=== PATIENT | female | born 1990 | race Caucasian/White ===

== ENCOUNTER 2018-02-15 18:19 | Emergency (ER) | payer BC, OTHER ==
[2018-02-15 18:42] VITALS: TEMP 98.8; BMI 26.9
--- NOTE | 2018-02-15 19:58 | PDOC ---
History of Present Illness - General Chief Complaint: Vaginal Bleeding Stated Complaint: 7 WEEKS Vaginal Bleeding Time Seen by Provider: 02/15/18 19:42 History Source: Patient Exam Limitations: No Limitations Past History - Past Medical History Allergies/Adverse Reactions: Allergies Allergy/AdvReac Type Severity Reaction Status Date / Time No Known Allergies Allergy Verified 02/15/18 19:51 COPD: No - Immunization History Immunization Up to Date: Yes - Suicide/Smoking/Psychosocial Hx Smoking History: Never smoked Information on smoking cessation initiated: No Hx Alcohol Use: No Drug/Substance Use Hx: No *Physical Exam - Vital Signs Last Vital Signs Temp Pulse Resp BP Pulse Ox 98.8 F 131 H 20 127/69 99 02/15/18 18:38 02/15/18 18:38 02/15/18 18:38 02/15/18 18:38 02/15/18 18:38 - Physical Exam General Appearance: No: Apparent Distress Respiratory/Chest: positive: Lungs Clear, Normal Breath Sounds. negative: Respiratory Distress Cardiovascular: positive: Regular Rhythm, Regular Rate, S1, S2. negative: Murmur Female Pelvic Exam: positive: cervical os closed, vaginal bleeding (small amount of blood in vaginal vault). negative: CMT, adnexal tenderness Gastrointestinal/Abdominal: positive: Normal Bowel Sounds, Soft. negative: Tender, Distended, Guarding, Rebound Moderate Sedation - Procedure Monitoring Vital Signs: Procedure Monitoring Vital Signs Temperature 98.8 F 02/15/18 18:38 Pulse Rate 131 H 02/15/18 18:38 Respiratory Rate 20 02/15/18 18:38 Blood Pressure 127/69 02/15/18 18:38 O2 Sat by Pulse Oximetry (%) 99 02/15/18 18:38 ED Treatment Course - LABORATORY CBC & Chemistry Diagram: 02/15/18 19:54 02/15/18 19:54 - RADIOLOGY Radiology Studies Ordered: Category Date Time Status TRANSVAGINAL US PREG [US] Stat Ultrasound 02/15/18 19:42 Ordered Medical Decision Making - Medical Decision Making 27 y/o F (hx of 1 miscarriage) presents with vaginal bleeding from today along with passing clots. Denies trauma, fever, sob, cp, n/v, urinary complaints. LNMP was 12/30/17. Last checkup with [facility] was last week where everything was noted to be fine. Possible threatened , also consider ectopic Plan: Labs, pelvic ultrasound Of note, repeat HR while in ED was 88 (patient states she was crying in triage) 02/15/18 19:56 Ultrasound shows evidence of IUP but low heart tone - possible concern for future miscarriage Bhcg levels correspond with patients Patient is Rh positive Patient advised to f/u with [facility] in 2 days for repeat ultrasound and blood work; will refer to Dr. Collins in case she is unable to get early appt with her [facility] Pelvic rest encouraged 02/15/18 22:51 *DC/Admit/Observation/Transfer Diagnosis at time of Disposition: Threatened - Discharge Dispostion Disposition: HOME Condition at time of disposition: Good Decision to Admit order: No - Referrals Referrals: Rogelio Collins MD [Staff Physician] - Call tomorrow - Patient Instructions Printed Discharge Instructions: DI for Threatened Additional Instructions: Thank you for choosing [facility]. It was a pleasure taking care of you. You came here for vaginal bleeding You are at risk of miscarriage Recommend pelvic rest. Avoid heavy lifting/work/intercourse Please follow-up with your [facility] in 2 days to get repeat ultrasound and blood tests. Return to the Emergency Department if your symptoms worsen or persist, you have fever, shortness of breath, chest pain, severe abdominal pain, vomiting, heavy vaginal bleeding or other concerning symptoms. - Post Discharge Activity Forms/Work/School Notes: Back to Work
[2018-02-15 20:30] LABS: BASO % 0.2 % (0-2.0); EOS % 0.2 % (0-4.5); HEMATOCRIT 32.6 % (32.4-45.2); HEMOGLOBIN 11.7 GM/dL (10.7-15.3); LYMPH % 17.1 % (8-40); MCH 30.9 pg (25.7-33.7); MCHC 35.7 g/dl (32.0-36.0); MEAN CELL VOLUME 86.6 fl (80-96); MEAN PLT VOLUME 9.7 fl (7.5-11.1); NEUT % 76.5 % (42.8-82.8); PLATELET COUNT 206 K/MM3 (134-434); RBC 3.77 M/mm3 (3.60-5.2); RDW 12.9 % (11.6-15.6)
[2018-02-15 21:13] LABS: ANION GAP 7 MMOL/L (8-16); BLOOD UREA NITROGEN 15 mg/dL (7-18); CALCIUM 8.8 mg/dL (8.5-10.1); CHLORIDE 105 mmol/L (98-107); CO2 25 mmol/L (21-32); CREATININE 0.6 mg/dL (0.55-1.3); GLUCOSE,RANDOM 104 mg/dL (74-106); POTASSIUM 3.9 mmol/L (3.5-5.1); SODIUM 137 mmol/L (136-145)
[2018-02-15 23:06] VITALS: BP 106/76; PULSE 86
== END 2018-02-15 23:06 | disposition home or self-care (01) ==
LOC: JER 18:19
DX: O26.891 Other specified pregnancy related conditions, first trimester (principal); O20.0 Threatened abortion; Z3A.01 Less than 8 weeks gestation of pregnancy
CPT/HCPCS: 36415; 76817-TC; 80048; 84702; 85025; 86850; 86900; 86901; 99282-25

== ENCOUNTER 2018-02-28 09:03 | Day surgery (SDC) | payer BC, OTHER ==
[2018-02-27 10:31] VITALS: BMI 26.6
[2018-02-28] MEDS ORDERED: MIDAZOLAM HCL 2 MG/2 ML SINGLE DOSE VIAL ONE (10:59)
[2018-02-28] MEDS ORDERED: DEXAMETHASONE SOD PHOSPHATE 4 MG/1 ML VIAL ONE (11:00)
[2018-02-28] MEDS ORDERED: LIDOCAINE HCL/PF 2% SDV 5ML VIAL ONE (11:00)
[2018-02-28] MEDS ORDERED: IBUPROFEN 800 MG/8 ML IJ IVPB PRN (11:03)
[2018-02-28] MEDS ORDERED: ACETAMINOPHEN 325 MG TABLET (FP) PO PRN (11:03)
--- NOTE | 2018-02-28 11:03 | HP ---
History & Physical Update - History History: No Change - Physical Physical: No Change - Assessment Assessment: No Change - Plan Plan: No Change (missed - for suction D&C)
[2018-02-28] MEDS ORDERED: LACTATED RINGERS SOLUTION 1,000 ML IV SCH (11:15)
[2018-02-28] MEDS ORDERED: KETOROLAC TROMETHAMINE 30 MG/1 ML VIAL ONE (11:32)
--- NOTE | 2018-02-28 11:41 | OP ---
Operative Note - Note: Operative Date: 02/28/18 Pre-Operative Diagnosis: missed Post-Operative Diagnosis: Same as Pre-op Surgeon: Sara Hawthorne Anesthesia: General (with LMA) Specimens Removed: products of conception Estimated Blood Loss (mls): 5 Operative Report Dictated: Yes
[2018-02-28] MEDS ORDERED: ONDANSETRON 4 MG/2 ML VIAL IVPUSH PRN (12:45)
[2018-02-28] MEDS ORDERED: oxyCODONE HCL 5 MG TABLET PO PRN (12:45)
[2018-02-28 13:37] VITALS: TEMP 97.5
[2018-02-28 14:29] VITALS: BP 107/52; PULSE 77
--- NOTE | 2018-03-01 07:35 | OP ---
DATE OF OPERATION: 02/28/2018 PREOPERATIVE DIAGNOSIS: Missed approximately 8 weeks gestation. POSTOPERATIVE DIAGNOSIS: Missed approximately 8 weeks gestation. PROCEDURE: Suction dilatation and curettage. SURGEON: Sara Hawthorne MD DESIGN COORDINATOR: None. ANESTHESIA: General with LMA. TRAFFIC SUPERVISOR: Kushal Prieto CRNA ESTIMATED BLOOD LOSS: 5 mL. SPECIMENS REMOVED: Products of conception. COMPLICATIONS: None. COUNTS: Sponge and instrument counts were correct. DISPOSITION: Stable to PACU. BRIEF HISTORY AND PROCEDURE: Patient is a 27-year-old female who had been seen in the office on several visits with positive test. However, on ultrasound examination, she was found to have of her . No viable fetus with no heart rate noted. The patient was counseled on her options. She would like to undergo a D and C procedure. The patient was then admitted to [facility] on February 28, 2018. At which point, consents were signed for the procedure. The patient was taken back to the operating room. After meeting with Anesthesia, she was placed in the dorsal lithotomy position and given LMA anesthesia. A hard time-out was performed. A speculum was placed inside the vagina. The anterior lip of the cervix was grasped with a tenaculum, and the cervix was dilated to accommodate a size 8 suction curette, which was advanced to the fundus. Several passes of the suction curette were completed to remove the tissue and products of conception. Sharp curettage was completed gently in all 4 dudley of the uterus until adequate uterine cry was appreciated. One final pass with the suction curette was completed to remove any remaining tissue. Minimal bleeding was noted from the cervical os at the end of the procedure. Sponge and instrument counts were reported to be correct. The patient tolerated the procedure well and was recovering in stable condition in PACU at the time of this dictation. SARA HAWTHORNE DO /[id number]
--- NOTE | 2018-03-01 19:28 | PATH ---
Surgical Pathology Report Patient Name: MICHAEL SOSA Med. Rec. #: [id number] /Age/Gender: 1990 (Age: 27) / F Account: [id number] Location: [facility] Taken: 02/28/2018 Received: 02/28/2018 Reported: 03/01/2018 Physicians: Sara Hawthorne M.D. Specimen(s) Received PRODUCTS OF CONCEPTION (TISSUE IN RPMI SENT FOR CHROMOSOMAL ANALYSIS) Clinical History Missed Final Diagnosis PRODUCTS OF CONCEPTION, REMOVAL: CHORIONIC VILLI PRESENT, CONSISTENT WITH PRODUCTS OF CONCEPTION. Electronically Signed Ray Plascencia M.D. Gross Description Received fresh labeled "products of conception," is an 8.0 x 5.5 x 0.8 cm aggregate of kemp-red soft tissue fragments. Villous tissue is identified. No somatic tissue is identified. A screening representative portion is placed in RPMI solution and sent for chromosomal analysis. An additional screening representative portion is submitted in one cassette. /02/28/2018 saudi02/28/2018
== END 2018-02-28 14:15 | disposition home or self-care (01) ==
LOC: JASU-SURG 09:03
PROVIDERS: ATTEND Obstetrics & Gynecology
PROC: 10D17ZZ Extraction of Products of Conception, Retained, Via Natural or Artificial Opening (ICD-10-PCS; principal; 2018-02-28 10:30)
DX: O02.1 Missed abortion (principal)
CPT/HCPCS: 86850; 86900; 86901; 88305-TC; 94760

== ENCOUNTER 2018-08-22 08:58 | Day surgery (SDC) | payer BC, OTHER ==
[2018-08-21 15:29] VITALS: BMI 25.8
[2018-08-22 09:29] LABS: HEMATOCRIT 32.4 % (32.4-45.2); HEMOGLOBIN 11.2 GM/dL (10.7-15.3); MCH 30.3 pg (25.7-33.7); MCHC 34.4 g/dl (32.0-36.0); MEAN CELL VOLUME 88.2 fl (80-96); MEAN PLT VOLUME 8.7 fl (7.5-11.1); PLATELET COUNT 171 K/MM3 (134-434); RBC 3.68 M/mm3 (3.60-5.2); RDW 14.2 % (11.6-15.6); WHITE BLOOD COUNT 6.7 K/mm3 (4.0-10.0)
[2018-08-22] MEDS ORDERED: IBUPROFEN 800 MG/8 ML IJ IVPB PRN (09:31)
[2018-08-22] MEDS ORDERED: ACETAMINOPHEN 325 MG TABLET (FP) PO PRN (09:31)
--- NOTE | 2018-08-22 09:31 | HP ---
Admitting History and Physical - Admission History of Present Illness: 27 y/o with h/o Spontaneous AB Feb 2018 requiring D&C - otherwise no significant past medical history - presents today for scheduled D&C for missed . Pt seen in office for several visits and ultrasound did not show progression or FHR on 2 separate scans in the office. Pt counseled on options and opted for D&C in OR. History Source: Patient, Medical Record - Past Medical History SULPHATE TESTER: No: Dementia, Migraine Cardiovascular: No: HTN Pulmonary: No: Asthma, COPD Gastrointestinal: No: GERD Hepatobiliary: No: Hepatitis B, Hepatitis C Renal/: No: Renal Calculi, UTI Reproductive: Yes: Other (h/o elective Ab and Spontaneous Ab in past). No: Ectopic , Endometriosis, Fibroids, PID, Polycystic Ovary Syndrome, Postmenopausal ...LMP: 06/17/18 ...: Yes (Pt with missed ) Heme/Onc: No: Anemia Infectious Disease: No: HIV, MRSA, STD's Psych: No: Bipolar, Depression - Past Surgical History Additional Past Surgical History: Lasik eye surgery, suction D&C - Smoking History Smoking history: Never smoked Have you smoked in the past 12 months: No - Alcohol/Substance Use Hx Alcohol Use: Yes (SOCIAL) - Social History Usual Living Arrangement: Yes: With Spouse ADL: Independent History of Recent Travel: No Home Medications - Allergies Allergies/Adverse Reactions: Allergies Allergy/AdvReac Type Severity Reaction Status Date / Time No Known Allergies Allergy Verified 02/15/18 19:51 - Home Medications Home Medications: Ambulatory Orders Prenat 115/Iron Fum/Folic/Dss [ 19 Tablet] 1 each PO DAILY 02/27/18 Review of Systems - Review of Systems Constitutional: reports: No Symptoms Eyes: reports: No Symptoms HENT: reports: No Symptoms Neck: reports: No Symptoms Cardiovascular: reports: No Symptoms Respiratory: reports: No Symptoms Gastrointestinal: reports: No Symptoms Genitourinary: reports: No Symptoms Breasts: reports: No Symptoms Reported Musculoskeletal: reports: No Symptoms Integumentary: reports: No Symptoms Neurological: reports: No Symptoms Endocrine: reports: No Symptoms Hematology/Lymphatic: reports: No Symptoms Psychiatric: reports: No Symptoms Physical Examination Constitutional: Yes: Well Nourished, No Distress, Calm Eyes: Yes: Conjunctiva Clear, EOM Intact HENT: Yes: Atraumatic, Normocephalic Neck: Yes: Trachea Midline Cardiovascular: Yes: Regular Rate and Rhythm Respiratory: Yes: Regular Gastrointestinal: Yes: Normal Bowel Sounds Neurological: Yes: Alert, Oriented Psychiatric: Yes: Alert, Oriented Problem List - Problems (1) Missed with demise before 20 completed weeks of gestation Code(s): O02.1 - MISSED Assessment/Plan 27 y/o with missed Ab here for D&C procedure. Blood type B positive. NPO Informed consents to be signed prior to procedure.
[2018-08-22] MEDS ORDERED: LACTATED RINGERS SOLUTION 1,000 ML IV SCH (09:45)
[2018-08-22 10:18] LABS: ALBUMIN 3.6 g/dl (3.4-5.0); BILIRUBIN,TOTAL 0.8 mg/dL (0.2-1); BLOOD UREA NITROGEN 11.5 mg/dL (7-18); CALCIUM 8.7 mg/dL (8.5-10.1); CREATININE 0.6 mg/dL (0.55-1.3); POTASSIUM 4.1 mmol/L (3.5-5.1); TOT PROT 7.3 g/dl (6.4-8.2)
--- NOTE | 2018-08-22 11:45 | PN ---
Progress Note (short form) - Note Progress Note: Pt seen prior to procedure. Procedure explained in detail, risks/benefits/alternatives discussed. Informed consent signed. Problem List - Problems (1) Missed with demise before 20 completed weeks of gestation Code(s): O02.1 - MISSED
[2018-08-22] MEDS ORDERED: MIDAZOLAM HCL 2 MG/2 ML SINGLE DOSE VIAL ONE (11:46)
[2018-08-22] MEDS ORDERED: LIDOCAINE HCL/PF 2% SDV 5ML VIAL ONE (11:46)
[2018-08-22] MEDS ORDERED: DEXAMETHASONE SOD PHOSPHATE 4 MG/1 ML VIAL ONE (11:46)
[2018-08-22] MEDS ORDERED: PROPOFOL 20 ML ONE ×2 (11:47→12:12)
[2018-08-22] MEDS ORDERED: KETOROLAC TROMETHAMINE 30 MG/1 ML VIAL ONE (11:55)
[2018-08-22] MEDS ORDERED: ONDANSETRON 4 MG/2 ML VIAL IVPUSH PRN (12:05)
[2018-08-22] MEDS ORDERED: oxyCODONE HCL 5 MG TABLET PO PRN (12:05)
[2018-08-22] MEDS ORDERED: METHYLERGONOVINE MALEATE 0.2 MG/1 ML AMP NR ONE (12:45)
--- NOTE | 2018-08-22 13:03 | OP ---
Operative Note - Note: Operative Date: 08/22/18 Pre-Operative Diagnosis: missed Operation: suction D&C with ultrasound guidance Findings: normal female genitalia, 7 week size uterus Post-Operative Diagnosis: Same as Pre-op Surgeon: Sara Hawthorne Anesthesiologist/ELECTRICIAN CONSTRUCTOR SUPERVISOR: Anyi Hopson Anesthesia: General Specimens Removed: products of conception Estimated Blood Loss (mls): 300 Operative Report Dictated: Yes
[2018-08-22 13:27] LABS: BASO % 0.2 % (0-2.0); EOS % 0.2 % (0-4.5); HEMATOCRIT 29.6 % (32.4-45.2); HEMOGLOBIN 10.1 GM/dL (10.7-15.3); LYMPH % 11.4 % (8-40); MCH 30.6 pg (25.7-33.7); MCHC 34.2 g/dl (32.0-36.0); MEAN CELL VOLUME 89.5 fl (80-96); MEAN PLT VOLUME 8.8 fl (7.5-11.1); MONO % 3.8 % (3.8-10.2); NEUT % 84.4 % (42.8-82.8); PLATELET COUNT 152 K/MM3 (134-434); RBC 3.31 M/mm3 (3.60-5.2); RDW 14.1 % (11.6-15.6); WHITE BLOOD COUNT 8.8 K/mm3 (4.0-10.0)
[2018-08-22 14:31] VITALS: BP 94/50; PULSE 70; TEMP 97.4
--- NOTE | 2018-08-22 19:42 | OP ---
DATE OF OPERATION: 09/01/2018 PREOPERATIVE DIAGNOSIS: Missed at approximately 6-2/7 weeks gestation. POSTOPERATIVE DIAGNOSIS: Missed at approximately 6-2/7 weeks gestation. PROCEDURE: Suction dilation and curettage with ultrasound guidance. SURGEON: Sara Hawthorne MD ANESTHESIA: General, by Anyi Hopson MD COMPLICATIONS: Included 300 mL blood loss secondary to bleeding. BLOOD TYPE: B+. MEDICATIONS: Methergine 0.2 mg was administered after the case. COUNTS: Sponge and instrument count correct. SPECIMENS REMOVED: Products of conception. DISPOSITION: Stable to PACU. BRIEF HISTORY AND PROCEDURE: The patient is a 27-year-old, G3, P0 female who was approximately 8 weeks gestation by dates, measuring 6-2/7 weeks gestation by ultrasound, was admitted to [facility] on August 22, 2018, for scheduled suction D&C secondary to a missed . The consents for the procedure were signed upon admission. DESCRIPTION: The patient was taken back to the operating room, given general anesthesia, placed in dorsal lithotomy position. She was prepped and draped in the usual sterile fashion and a hard timeout was performed. A speculum was placed inside the vagina. The cervix was easily visualized and grasped with a tenaculum. The cervix was dilated to accommodate a size 7 suction curette, which was advanced to the fundus of the uterus. Multiple passes of the suction curette were completed and sharp curettage was completed in all 4 dudley of the uterus. There was some brisk bleeding noted from the cervical os, at which point the ultrasound machine was brought in to the room and revealed no retained products of conception, however, blood building up inside the uterine cavity. Suction D&C was completed under ultrasound guidance at this time to remove the extra blood, and minimal bleeding afterwards was noted from the cervical os. One dose of Methergine 0.2 mg was given IM after the case to prevent further bleeding. All instruments were removed from the vagina. Minimal bleeding was noted from the cervical os. The patient was awoken from anesthesia, recovering in PACU after the procedure. SARA HAWTHORNE DO /[id number]
--- NOTE | 2018-08-27 10:13 | PATH ---
Surgical Pathology Report Patient Name: MICHAEL SOSA [facility]. Rec. #: [id number] /Age/Gender: 1990 (Age: 27) / F Account: [id number] Location: [facility] Taken: 08/22/2018 Received: 08/22/2018 Reported: 08/27/2018 Physicians: Sara Hawthorne M.D. Specimen(s) Received PRODUCTS OF CONCEPTION Clinical History Missed Final Diagnosis PRODUCTS OF CONCEPTION, SUCTION DILATION AND CURETTAGE: IMMATURE CHORIONIC VILLI AND SCANT DECIDUA CONSISTENT WITH PRODUCTS OF CONCEPTION. CHROMOSOMAL STUDIES ARE PENDING AND WILL BE REPORTED SEPARATELY AN ADDENDUM. Electronically Signed Pam Roblero M.D. Addendum Reported: 08/30/2018 Addendum Diagnosis CHROMOSOME ANALYSIS performed and interpreted at [facility] laboratory, [place], [place] (Specimen #: [id number]) shows the following: RESULTS: 46, XX Female karyotype INTERPRETATION: Normal karyotype (female) within the limits of the technology utilized. Analysis was performed on chorionic villi dissected from the specimen submitted. These results most likely reflect rather than maternal karyotype. RECOMMENDATION If the couple has a history of repeated losses of unknown etiology, or there are other indications of a familial chromosome rearrangement, blood chromosome analysis of the parents should be considered (5 cc of blood in green top sodium heparin tubes). Blood chromosome analysis usually provides greater resolution than POC chromosome analysis. COMMENT: The standard cytogenic methodology utilized in this analysis does not routinely detect subtle rearrangement or low level mosaicism and cannot detect microdeletions. Also, it cannot detect molecular cytogenetic abnormalities (such as microdeletions and microduplications detectable by microarray analysis. See [employer] Reports (Specimen ID #: [id number]) for additional details. Pam Roblero M.D. Gross Description Received fresh in 3 separate containers labeled "products of conception," is an 11.5 x 10.0 x 1.4 cm aggregate of kemp-red soft tissue fragments admixed with blood clot. Villous tissue is identified. No somatic tissue is identified. A insurance sales representative portion is placed in RPMI solution and sent for chromosomal analysis. An additional insurance sales representative portion is submitted in one cassette. /08/22/201808/22/2018
== END 2018-08-22 15:08 | disposition home or self-care (01) ==
LOC: JASU-SURG 08:58
PROVIDERS: ATTEND Obstetrics & Gynecology
PROC: 10D17ZZ Extraction of Products of Conception, Retained, Via Natural or Artificial Opening (ICD-10-PCS; principal; 2018-08-22 11:30)
DX: O02.1 Missed abortion (principal)
CPT/HCPCS: 36415; 80053; 84702; 85025; 85027; 86850; 86900; 86901; 88305-TC; 94760

== ENCOUNTER 2018-10-24 05:28 | Day surgery (SDC) | payer BC, OTHER ==
[2018-10-19 16:42] VITALS: BMI 24.9
[2018-10-24] MEDS ORDERED: MIDAZOLAM HCL 2 MG/2 ML SINGLE DOSE VIAL ONE ×3 (08:36→10:42)
[2018-10-24] MEDS ORDERED: DEXAMETHASONE SOD PHOSPHATE 4 MG/1 ML VIAL ONE ×2 (08:36→10:16)
[2018-10-24] MEDS ORDERED: PROPOFOL 20 ML ONE (08:37)
[2018-10-24] MEDS ORDERED: KETOROLAC TROMETHAMINE 30 MG/1 ML VIAL ONE ×2 (08:37→10:16)
[2018-10-24] MEDS ORDERED: LIDOCAINE HCL/PF 2% SDV 5ML VIAL ONE ×2 (08:37→10:16)
[2018-10-24] MEDS ORDERED: SODIUM CHLORIDE 0.9% P/F 10 ML VIAL IJ ONE (10:19)
--- NOTE | 2018-10-24 10:46 | HP ---
History & Physical Update - History History: No Change - Physical Physical: No Change - Assessment Assessment: No Change - Plan Plan: No Change (Agree with H&P from 10/19/18, for hysteroscopic myomectomy/ polypectomy and D&C)
[2018-10-24] MEDS ORDERED: ACETAMINOPHEN 325 MG TABLET (FP) PO PRN (10:47)
[2018-10-24] MEDS ORDERED: IBUPROFEN 800 MG/8 ML IJ IVPB PRN (10:47)
[2018-10-24] MEDS ORDERED: LACTATED RINGERS SOLUTION 1,000 ML IV SCH ×2 (11:00→12:00)
--- NOTE | 2018-10-24 11:55 | OP ---
Operative Note - Note: Operative Date: 10/24/18 Pre-Operative Diagnosis: recurrent loss, submucosal leiomyoma Operation: hysteroscopic myomectomy, suction D&C Findings: submucosal leiomyoma at opening to right tubal ostia Post-Operative Diagnosis: Same as Pre-op Surgeon: Sara Hawthorne Anesthesiologist/LEAD SUSTAINABILITY SPECIALIST: Wes Russo Anesthesia: General (with LMA) Specimens Removed: submucosal leiomyoma Estimated Blood Loss (mls): 5 Operative Report Dictated: Yes
[2018-10-24] MEDS ORDERED: ONDANSETRON 4 MG/2 ML VIAL IVPUSH PRN (11:57)
[2018-10-24] MEDS ORDERED: oxyCODONE HCL 5 MG TABLET PO PRN ×2 (11:57)
--- NOTE | 2018-10-24 13:35 | OP ---
DATE OF OPERATION: 10/24/2018 PREOPERATIVE DIAGNOSIS: Recurrent submucosal leiomyoma. POSTOPERATIVE DIAGNOSIS: Recurrent submucosal leiomyoma. PROCEDURE: Hysteroscopic resection of submucosal leiomyoma, suction dilation and curettage. SURGEON: Sara Hawthorne MD ANESTHESIA: General, by Dr. Russo, with LMA ESTIMATED BLOOD LOSS: 5 mL. SPECIMENS REMOVED: Submucosal leiomyoma. COUNTS: Sponge and instrument count correct. COMPLICATIONS: None. DISPOSITION: Stable to PACU. BRIEF HISTORY AND PROCEDURE: The patient is a 28-year-old female who was seen in the office after having 2 spontaneous abortions. Upon hysterosalpingogram in the office, the patient was found to have a submucosal leiomyoma at the location of the right cornua. The patient was counseled on her options and elected to undergo hysteroscopic resection. Consent for the procedure was signed in the office on October 19, 2018. They were reconfirmed upon admission on October 24, 2018. She was then taken back to the operating room, given general anesthesia, placed in dorsal lithotomy position. A hard timeout was performed. She was prepped and draped in the usual sterile fashion. A speculum was placed inside the vagina. The anterior lip of the cervix was grasped and dilated to accommodate an operative hysteroscope, which was advanced to the fundus of the uterus. Bilateral tubal ostia were noted. The left tubal ostia appeared to be clear with no evidence of blockage or scar tissue. The right tubal ostia appeared to have a submucosal leiomyoma covering the opening. In several passes with resection device, submucosal leiomyoma was excised in several passes. Care was taken not to perforate the uterus at this location. The amount of tissue that was removed was only enough until the opening to the tubal ostia was able to be visualized. Suction D&C was performed to remove all detached leiomyoma pieces. One final pass with the hysteroscope revealed no evidence of uterine perforation and ability to visualize the opening to the tubal ostia on the right side. All instruments were removed from the vagina. The patient was awoken from anesthesia, recovering in stable condition in the PACU after procedure. Sponge, needle, and instrument count was noted to be correct. SARA HAWTHORNE DO /[id number]
[2018-10-24 14:00] VITALS: BP 102/53; PULSE 67; TEMP 98.2
--- NOTE | 2018-10-25 16:01 | PATH ---
Surgical Pathology Report Patient Name: IMCHAEL SOSA [facility]. Rec. #: [id number] /Age/Gender: 1990 (Age: 28) / F Account: [id number] Location: [facility] Taken: 10/24/2018 Received: 10/24/2018 Reported: 10/25/2018 Physicians: Sara Hawthorne M.D. Specimen(s) Received ENDOMETRIAL CURETTINGS Clinical History Submucosal myoma Final Diagnosis ENDOMETRIAL CURETTINGS, HYSTEROSCOPIC MYOMECTOMY, SUCTION DILATION AND CURETTAGE: FRAGMENTS OF WEAKLY PROLIFERATIVE ENDOMETRIUM WITH FOCAL MILD CHRONIC ENDOMETRITIS. SMOOTH MUSCLE FRAGMENTS SUGGESTIVE OF SUBMUCOSAL LEIOMYOMA. RARE BENIGN CERVICAL SQUAMOUS MUCOSA. Electronically Signed Pam Roblero M.D. Gross Description Received in formalin labeled "endometrial curettings" are multiple fragments of pink-kemp, focally hemorrhagic tissue measuring 2 x 1 x 0.3 cm in aggregate. Entire specimen submitted in one cassette. MLSZ/10/24/2018 sanml/10/24/2018
== END 2018-10-24 13:50 | disposition home or self-care (01) ==
LOC: JASU-SURG 05:28
PROVIDERS: ATTEND Obstetrics & Gynecology
PROC: 0UDB8ZX Extraction of Endometrium, Via Natural or Artificial Opening Endoscopic, Diagnostic (ICD-10-PCS; 2018-10-24)
PROC: 0UB98ZZ Excision of Uterus, Via Natural or Artificial Opening Endoscopic (ICD-10-PCS; principal; 2018-10-24 11:00)
PROC: 0UB98ZZ Excision of Uterus, Via Natural or Artificial Opening Endoscopic (ICD-10-PCS; 2018-10-24 11:00)
DX: D25.0 Submucous leiomyoma of uterus (principal)
CPT/HCPCS: 84703; 88305-TC; 94760